=== PATIENT | male | born 1990 | race Caucasian/White ===

== ENCOUNTER 2018-05-17 20:31 | Emergency (ER) | payer OTHER ==
[~2018-05-17] VITALS: Ht 190.5 cm; Wt 101.4 kg
[2018-05-17] MEDS ORDERED: IBUPOTC PO (20:42)
[2018-05-17] MEDS ORDERED: diazePAM 10 MG TAB PO ONE (22:00)
[2018-05-17] MEDS ORDERED: KETOROLAC 60 MG/2 ML VIAL (J1885) IM ONE (22:00)
[2018-05-17] MEDS ORDERED: IBUP-1022 PO (22:05)
[2018-05-17] MEDS ORDERED: SOMA350T PO (22:05)
[2018-05-17 22:53] VITALS: BP 131/68
== END 2018-05-17 22:54 | disposition home or self-care (01) ==
LOC: M ED 20:31
DX: S29.012A Strain of muscle and tendon of back wall of thorax, initial encounter (principal); X58.XXXA Exposure to other specified factors, initial encounter; Y92.89 Other specified places as the place of occurrence of the external cause; Z88.0 Allergy status to penicillin
CPT/HCPCS: 96372; 99283; J1885